=== PATIENT | female | born 1980 | race Caucasian/White ===

== ENCOUNTER 2016-12-04 07:29 | Emergency (ER) | payer MEDICAID ==
[2016-12-04] MEDS ORDERED: OXYCODONE/APAP 5/325 TAB ONE (08:48)
== END 2016-12-04 09:01 | disposition home or self-care (01) ==
LOC: ER 07:29
DX: K08.89 Other specified disorders of teeth and supporting structures (principal); K02.9 Dental caries, unspecified; F17.210 Nicotine dependence, cigarettes, uncomplicated